=== PATIENT | female | born 1995 | race Caucasian/White ===

== ENCOUNTER 2017-10-30 00:35 | Emergency (ER) | payer OTHER, MEDICAID ==
[2017-10-30 02:27] LABS: INFLUENZA A AMPLIFICATION NEGATIVE (NEGATIVE); INFLUENZA B AMPLIFICATION POSITIVE (NEGATIVE)
== END 2017-10-30 03:03 | disposition home or self-care (01) ==
LOC: M ED 00:35
DX: J11.1 Influenza due to unidentified influenza virus with other respiratory manifestations (principal)
CPT/HCPCS: 87502

== ENCOUNTER 2019-05-19 21:07 | Emergency (ER) | payer OTHER, SELFPAY ==
[~2019-05-19] VITALS: Ht 175.3 cm; Wt 59.4 kg
[2019-05-19] MEDS ORDERED: predniSONE 20 MG TAB PO ONE (23:15)
[2019-05-19] MEDS ORDERED: BENZONATATE 100 MG CAP PO ONE (23:15)
[2019-05-19] MEDS ORDERED: IPRATROPIUM 0.5MG/ALBUTEROL 2.5MG INH SOL UD 3ML (DUONEB)(J7620) NEB PRN (23:15)
[2019-05-19] MEDS ORDERED: IBUPROFEN 600 MG TAB PO ONE (23:15)
[2019-05-20] MEDS ORDERED: PROAAER10 INH (00:16)
[2019-05-20] MEDS ORDERED: PRED20TA PO (00:16)
[2019-05-20] MEDS ORDERED: TESS100C PO (00:16)
[2019-05-20 00:28] VITALS: BP 114/68
--- NOTE | 2019-05-20 03:00 | REP ---
Clinical: Cough and chest pain . Comparison: None . Technique: PA and lateral. Findings: The mediastinum and cardiac silhouette are normal. The lung andujar are clear and without acute consolidation, effusion, or pneumothorax. The skeletal structures are intact and normal. Impression: 1. No acute cardiopulmonary process. Electronically Signed by Franc Wood MD 05/20/2019 02:51 A
== END 2019-05-20 00:34 | disposition home or self-care (01) ==
LOC: M ED 21:07
DX: J06.9 Acute upper respiratory infection, unspecified (principal)

== ENCOUNTER 2020-03-16 08:50 | Emergency (ER) | payer MEDICAID, OTHER, SELFPAY ==
[~2020-03-16 08:50] MED LIST: PRED20TA PO; PROAAER10 INH; TESS100C PO
[2020-03-16] MEDS ORDERED: ONDANSETRON 4MG/2ML VIAL As Ordered ONE (09:54)
[2020-03-16] MEDS ORDERED: ONDANSETRON 4MG/2ML VIAL ONE (21:54)
== END 2020-03-16 11:50 | disposition home or self-care (01) ==
LOC: M ED 08:50
DX: O21.0 Mild hyperemesis gravidarum (principal); O26.851 Spotting complicating pregnancy, first trimester; Z3A.01 Less than 8 weeks gestation of pregnancy; O99.341 Other mental disorders complicating pregnancy, first trimester; Z79.899 Other long term (current) drug therapy
CPT/HCPCS: 80048; 84702; 86901; 96374; 99284; J2405

== ENCOUNTER 2020-03-28 21:11 | Emergency (ER) | payer MEDICAID, OTHER, SELFPAY ==
[~2020-03-28] VITALS: Ht 175.3 cm; Wt 56.9 kg
[2020-03-28] MEDS ORDERED: ONDA-83 PO (21:16)
[2020-03-28] MEDS ORDERED: NS 1,000 ML IV ONE (22:00)
[2020-03-28] MEDS ORDERED: METOCLOPRAMIDE INJ 10MG/2ML VIAL (J2765 PER 1) IV ONE (22:00)
[2020-03-28 22:14] LABS: BASO % 0.2 % (0.0-1.0); EOS % 0.2 % (0.0-3.0); HEMATOCRIT 40.7 % (36.0-47.0); HEMOGLOBIN 14.6 g/dl (12.0-15.5); LYMPH # 1.8 10^3/uL (1.5-5.0); LYMPH % 14.1 % (24.0-44.0); MEAN CORPUSCULAR HEMOGLOBIN 31.7 pg (27.0-33.0); MEAN CORPUSCULAR HGB CONC 35.9 g/dl (32.0-36.5); MEAN CORPUSCULAR VOLUME 88.5 fl (80.0-96.0); MONO # 0.8 10^3/uL (0.0-0.8); MONO % 6.5 % (0.0-5.0); NEUTROPHILS % 78.6 % (36.0-66.0); PLATELET COUNT, AUTOMATED 234 10^3/uL (150-450); WHITE BLOOD COUNT 12.7 10^3/uL (4.0-10.0)
[2020-03-28 23:45] LABS: ALBUMIN 4.4 GM/DL (3.2-5.2); ALT/SGPT 16 U/L (12-78); BILIRUBIN,DIRECT 0.1 MG/DL (0.0-0.2); BILIRUBIN,TOTAL 0.5 MG/DL (0.2-1.0); BLOOD UREA NITROGEN 8 MG/DL (7-18); CALCIUM LEVEL 9.3 MG/DL (8.5-10.1); CARBON DIOXIDE LEVEL 25 MEQ/L (21-32); CHLORIDE LEVEL 105 MEQ/L (98-107); CREATININE FOR GFR 0.66 MG/DL (0.55-1.30); GLOMERULAR FILTRATION RATE > 60.0 (>60); GLUCOSE, FASTING 101 MG/DL (70-100); HCG, SERUM QUANTITATIVE 174677 MIU/ML; LIPASE 57 U/L (73-393); POTASSIUM SERUM 3.6 MEQ/L (3.5-5.1); SODIUM LEVEL 138 MEQ/L (136-145); TOTAL PROTEIN 7.9 GM/DL (6.4-8.2)
[2020-03-28 23:52] LABS: APPEARANCE, URINE CLOUDY (CLEAR); BACTERIA, URINE AUTO 2+ (NEGATIVE); BILIRUBIN, URINE AUTO NEGATIVE (NEGATIVE); BLOOD, URINE BLOOD NEGATIVE (NEGATIVE); COLOR, URINE AMBER (YELLOW); GLUCOSE, URINE (UA) AUTO 1+ mg/dL (NEGATIVE); KETONE, URINE AUTO 2+ mg/dL (NEGATIVE); LEUKOCYTE ESTERASE, URINE AUTO NEGATIVE (NEGATIVE); MUCUS, URINE LARGE (NEGATIVE); NITRITE, URINE AUTO NEGATIVE (NEGATIVE); PROTEIN, URINE AUTO 1+ mg/dL (NEGATIVE); RBC, URINE AUTO 4 /HPF (0-3); SPECIFIC GRAVITY URINE AUTO 1.029 (1.002-1.035); SQUAMOUS EPITHELIAL CELL UR AU 30 /HPF (0-6); TRANSITIONAL EPITHELIAL AUTO 1 /HPF; UROBILINOGEN, URINE AUTO 0.2 mg/dL (0.0-2.0); WBC, URINE AUTO 4 /HPF (0-3)
[2020-03-29 00:09] LABS: AMPHETAMINES LEVEL URINE NEGATIVE (NEGATIVE); BARBITURATES URINE NEGATIVE (NEGATIVE); BENZODIAZEPINES URINE NEGATIVE (NEGATIVE); CANNABINOIDS URINE POSITIVE (NEGATIVE); COCAINE METABOLITE URINE NEGATIVE (NEGATIVE); METHADONE URINE NEGATIVE (NEGATIVE); OPIATES URINE NEGATIVE (NEGATIVE); PHENCYCLIDINE URINE NEGATIVE (NEGATIVE)
[2020-03-29] MEDS ORDERED: REGL10TA6 PO (01:38)
[2020-03-29 01:56] VITALS: BP 120/72
== END 2020-03-29 01:59 | disposition home or self-care (01) ==
LOC: M ED 21:11
DX: O21.1 Hyperemesis gravidarum with metabolic disturbance (principal); O99.89 Other specified diseases and conditions complicating pregnancy, childbirth and the puerperium; F12.188 Cannabis abuse with other cannabis-induced disorder; O99.340 Other mental disorders complicating pregnancy, unspecified trimester
CPT/HCPCS: 36415; 80048; 80076; 80307; 81001; 83690; 84702; 85025; 96361; 96374; 99284; J2765

== ENCOUNTER 2021-05-09 22:37 | Emergency (ER) | payer OTHER ==
[~2021-05-09] VITALS: Ht 177.8 cm; Wt 77.2 kg
[~2021-05-09 22:37] MED LIST changes: +ONDA-83 PO; +REGL10TA6 PO
[2021-05-09] MEDS ORDERED: NORCO 5/325MG TABLET (BULK FOR ED) PO ONE (23:50)
[2021-05-10 00:04] VITALS: BP 123/65
== END 2021-05-10 00:10 | disposition home or self-care (01) ==
LOC: M ED 22:37
DX: T25.121A Burn of first degree of right foot, initial encounter (principal); T31.0 Burns involving less than 10% of body surface; X10.2XXA Contact with fats and cooking oils, initial encounter; Y92.099 Unspecified place in other non-institutional residence as the place of occurrence of the external cause; Y93.9 Activity, unspecified; Y99.9 Unspecified external cause status

== ENCOUNTER → 2021-07-29 | Outpatient (CLI) | payer OTHER | LOC: M LABSMTC 13:13 | PROVIDERS: ATTEND Pediatrics | DX: Z11.52 Encounter for screening for COVID-19 (principal) ==

== ENCOUNTER 2022-12-07 22:42 | Emergency (ER) | payer OTHER ==
[~2022-12-07] VITALS: Ht 177.8 cm; Wt 63.9 kg
[2022-12-07 22:43] VITALS: BP 109/59
== END 2022-12-08 02:40 | disposition left against medical advice (07) ==
LOC: M ED 22:42
DX: Z53.21 Procedure and treatment not carried out due to patient leaving prior to being seen by health care provider (principal)